=== PATIENT | female | born 1955 | race Caucasian/White ===

== ENCOUNTER 2018-02-07 15:30 | Inpatient (IN) | payer OTHER ==
[~2018-02-07] VITALS: Ht 157.5 cm; Wt 100.3 kg
[2018-02-07 15:37] VITALS: BP 114/66
[2018-02-07] MEDS ORDERED: CELEXA20 MG PO (15:41)
[2018-02-07] MEDS ORDERED: GLUCOTROL5 MG PO (15:41)
[2018-02-07] MEDS ORDERED: SYNTHROID150 MCG PO (15:41)
[2018-02-07] MEDS ORDERED: FARXIGA10 MG PO (15:41)
[2018-02-07] MEDS ORDERED: HYDROCHLOROTHIA25 M2 PO (15:42)
[2018-02-07] MEDS ORDERED: LIPITOR 20 MG T20 M1 PO (15:42)
[2018-02-07] MEDS ORDERED: GLUCOPHAGE XR500 MG PO (15:42)
[2018-02-07] MEDS ORDERED: LISINOPRIL30 MG PO (15:42)
[2018-02-07] MEDS ORDERED: ALLEGRA ALLERGY60 MG PO (15:43)
[2018-02-07] MEDS ORDERED: ATENOLOL 100MG100 M2 PO (15:43)
[2018-02-07] MEDS ORDERED: CELEBREX 200 M200 M1 PO (15:43)
[2018-02-07 16:12] LABS: ABSOLUTE BASOPHILS 0.1 thou/uL (0.0-0.2); ABSOLUTE EOSINOPHILS 0.2 thou/uL (0.0-0.7); ABSOLUTE LYMPHOCYTES 1.5 thou/uL (0.8-5.3); ABSOLUTE MONOCYTES 0.8 thou/uL (0.0-1.2); ABSOLUTE NEUTROPHILS 5.2 thou/uL (1.6-8.1); BASOPHILS 0.8 %; EOSINOPHILS 3.1 %; HEMOGLOBIN 9.9 gm/dL (12.0-15.0); LYMPHOCYTES 19.4 %; MCH 30.8 pg (26.0-34.0); MCHC 32.9 g/dL (28.0-37.0); MCV 93.7 fL (80.0-100.0); MONOCYTES 10.2 %; MPV 8.2 fl. (7.2-11.1); NUCLEATED RBCS 0 /100WBC; PLATELET COUNT* 352 thou/uL (150-400); POLYS 66.5 %; RDW-CV 14.8 % (10.5-14.5); WBC 7.9 thou/uL (4.0-11.0)
[2018-02-07 16:21] LABS: APTT 30.9 Seconds (25.0-31.3); PROTIME 9.5 Seconds (9.20-11.50)
[2018-02-07 16:23] LABS: CREATININE 1.3 mg/dL (0.6-1.3); POTASSIUM 4.5 mmol/L (3.5-5.1)
[2018-02-07 16:28] LABS: ALBUMIN 3.1 g/dL (3.4-5.0); TOTAL BILIRUBIN 0.6 mg/dL (<0.1-1.0); TOTAL PROTEIN 8.1 g/dL (6.4-8.2)
[2018-02-07 20:00] VITALS: BP 125/56
[2018-02-07 20:11] VITALS: BP 122/68
--- NOTE | 2018-02-08 05:33 | NUR ---
PT ADMITTED TO UNIT. PT ORIENTED TO ROOM, CALL LIGHT SHOWN, FALL AGREEMENT WENT OVER. PT STATED UNDERSTANDING. ADMISSION COMPLETED. ASSESSMENT DOCUMENTED. PICTURE TAKEN. NO REPORTS OF PAIN. IV PATENT, FLUIDS INFUSING. WILL CONTINUE WITH PLAN OF CARE.
[2018-02-08 08:20] VITALS: BP 121/69
[2018-02-08] MEDS ORDERED: METFORMIN HCL500 MG PO (11:35)
[2018-02-08 16:00] VITALS: BP 128/60
--- NOTE | 2018-02-08 17:31 | NUR ---
WOUND CARE NOTE: CONSULT RECEIVED FOR CELLULITIS LEFT FOOT. PATIENT WAS SEEN WITH HOME HEALTH SPEECH THERAPIST. 3 ULCERATIONS NOTED TO LEFT HALLUX. LATERAL AND MEDIAL ASPECTS OF THE TOE WITH 0.5X0.5 ULCERATIONS. SIGNIFICANT AMOUNT OF DEPTH WITH THE LATERAL ASPECT PROBING TO BONE. PLANS FOR LEFT HALLUX AMPUTATION TOMORROW WITH DR. SEGAL. APPLIED DRY GAUZE AT THIS TIME FOR DRAINAGE ABSORBTION.
--- NOTE | 2018-02-08 18:42 | NUR ---
PATIENT HAS BEEN A/O X 4 THIS SHIFT. HAS DENIED PAIN OR DISCOMFORT TO LEFT FOOT. LEFT FOOT REMAINS RED AND SWOLLEN. SEEN BY PODIATRY THIS SHIFT, PLAN FOR SURGERY IN THE AM. TOLERATING DIET. IV ANTIBIOTICS INFUSING ORDERED, IV FLUIDS CONTINUE TO INFUSE. UP AD JEREMÍAS IN ROOM. LEFT LEG ELEVATED ON PILLOWS WHILE IN BED. PATIENT AND FAMILY UPDATED ON PLAN OF CARE. HOURLY ROUNDING COMPLETED. CALL LIGHT WITHIN REACH. WILL CONTINUE WITH PLAN OF CARE.
[2018-02-08 20:45] VITALS: BP 116/78
--- NOTE | 2018-02-09 05:58 | NUR ---
PT SLEPT MOST OF SHIFT. ASSESSMENT DOCUMENTED. MEDS GIVEN PER E-AUG. IV PATENT, FLUIDS INFUSED. NO REPORTS OF PAIN. PT REMAINED NPO AFTER MIDNIGHT. AM MEDS WILL BE GIVEN WITH A SIP OF WATER. WILL CONTINUE WITH PLAN OF CARE.
[2018-02-09 08:35] VITALS: BP 144/58
[2018-02-09 10:43] VITALS: BP 144/68
--- NOTE | 2018-02-09 12:06 | EKG ---
[place] [address] ELECTROCARDIOGRAM REPORT Name: JOANIE HIRSCH Room: [address] ADM IN ..#: [id number] Admission: 02/07/18 Attend Phys: Keri Hodge MD Discharge: Date of : 53 Report #: [id number] THIS REPORT FOR: //name// [facility] Test Date: 2018-02-09 Test Time: 09:14:02 Pat Name: JOANIE HIRSCH Department: Room: [address] Gender: F [employer]als[employer]: : 1955 Requested By: Evelio Page Order Number: [id number] Reading MD: Tyron Quesada Measurements Intervals [place] Rate: 67 P: 43 HI: 130 QRS: 3 QRSD: 103 T: 36 QT: 433 QTc: 457 Interpretive Statements Sinus arrhythmia Borderline T abnormalities, anterior leads No previous ECG available for comparison Electronically Signed On 02-09-2018 12:06:26 CDT by Tyron Quesada [email or web address] <ELECTRONICALLY SIGNED> By: Tyron Quesada MD, [facility] 02/09/18 1206 0914 3 Tyron Quesada MD, FACC /EPI
--- NOTE | 2018-02-09 12:58 | CON ---
[address] [address] CONSULTATION Name: JOANIE HIRSCH Room: [address] IN .R.#: [id number] Admission: 02/07/18 Attend Phys: Keri Hodge MD Discharge: Date of : 53 Report #: [id number] THIS REPORT FOR: //name// CC: Arnulfo Hodge DATE OF SERVICE: 02/08/2018 REASON FOR CONSULTATION: Soft tissue infection, left foot, great toe. CHIEF COMPLAINT AND HISTORY OF PRESENT ILLNESS: The patient is 62-year-old female that was admitted today with ulceration to left great toe with deep tissue infection and cellulitis extending to the lower leg. She has a longstanding history of type 2 diabetes mellitus with peripheral neuropathy. She noticed a wound forming to the dorsal aspect of the toenail bed roughly 4 weeks ago and treated with topical antibiotic and a Band-Aid. She then noticed a wound erupting to the medial aspect earlier this week with increased redness, swelling, and low-grade fevers. She denies any get trauma. She denies outpatient treatment for the wound. She is currently on parenteral vancomycin with good tolerance. Foot radiographs significant for osteolysis to left hallux interphalangeal joint consistent with septic arthritis. Blood cultures are pending x 2. LABORATORY DATA: WBC 7.9, RBC 3.20, hemoglobin 9.9, hematocrit 30.0, platelets 352. BUN 25, creatinine 1.3, glucose 120. PHYSICAL EXAMINATION: Advanced inflammation with cellulitis to the left great toe joint, dorsal foot and anterior ankle. There are 2 penetrating wounds to left great toe, 1 medial and 1 lateral. Both wounds under the hallux interphalangeal joint, and I cannot palpate bone with a sterile Q-tip. I am able to express some purulence from both wounds. I performed an aerobic and anaerobic swab culture. She has strong pedal pulses bilaterally. Negative Homans' or Suarez sign. No popliteal adenopathy to the popliteal fossa. IMPRESSION: Septic arthritis with osteomyelitis, left great toe interphalangeal joint, type 2 diabetes mellitus with peripheral neuropathy. PLAN: We will plan surgical amputation tomorrow. The patient to be nonweightbearing, rest, elevate the extremity with parenteral antibiotics. We will keep her n.p.o. past midnight. <ELECTRONICALLY SIGNED> By: Won Montalvo DPM 02/09/18 1258 [id number] [id number] Montalvo DPM /nt
--- NOTE | 2018-02-09 13:03 | NUR ---
Nutrition: Pt admitted for Lt toe amputation, cellulitis LLE. H/o DM II, Rt foot ulcers, HTN. NPO currently for surgery. Wt: 221#. BG 164, albumin 3.1. Pt is seen for high BMI, 40.4. No nutrition interventions today. GOALS: diet to advance to CHO controlled when able, tight BG control for wound healing. Please consult RD if nutrition education warranted after procedure. RECOMMEND MVI.
--- NOTE | 2018-02-09 15:54 | NUR ---
SW attempted to meet with pt to complete initial assessment and pt was off of the unit. Pt lives at home with . SW to continue to follow to assist with safe dc planning.
[2018-02-09 16:45] VITALS: BP 147/70
--- NOTE | 2018-02-09 17:33 | NUR ---
PATIENT HAS BEEN A/O X 4 THIS SHIFT. PATIENT HAS DENIED PAIN THI SHIFT. IV FLUIDS AND ANTIBIOTICS INFUSED ORDERED. PATIENT HAD LEFT GREAT TOE AMPUTATED THIS SHIFT, RETURNED FROM SURGERY AT 1645. VITAL STABLE ON ROOM AIR. PATIENT WITH BULKY DRESSING INTACT TO LEFT FOOT. PATIENT INSTRUCTED ON WEIGHT BEARING STATUS TO LEFT FOOT AND VERBALIZED UNDERSTANDING. ID CONSULTED FOR ANTIBIOTICS. TO HAVE ULTRASOUND OF ABDOMEN AND BILATERAL LOWER LEGS ON WEDNESDAY. FAMILY AT BEDSIDE. HOURLY ROUNDING COMPLETED. CALL LIGHT WITHIN REACH. WILL CONTINUE WITH PLAN OF CARE.
[2018-02-09 23:34] VITALS: BP 131/68
[2018-02-10 03:11] VITALS: BP 125/68
--- NOTE | 2018-02-10 05:11 | NUR ---
PT SLEPT AT INTERVALS DURING THE NIGHT, PLEASANT, IV FLUIDS INFUSED, UP SBA WITH WALKER, NWB LEFT FOOT TO THE BATHROOM, CALL LIGHT IN REACH, PRN TYLENOL LAST NIGHT FOR A HEADACHE, LEFT FOOT ON PILLOW, WILL CONTINUE TO MONITOR
[2018-02-10 08:20] VITALS: BP 135/57
--- NOTE | 2018-02-10 11:44 | CON ---
[address] [address] CONSULTATION Name: JOANIE HIRSCH Room: [address] IN M.R.#: [id number] Admission: 02/07/18 Attend Phys: Keri Hodge MD Discharge: Date of : 53 Report #: [id number] THIS REPORT FOR: //name// CC: Arnulfo Hodge DATE OF SERVICE: 02/09/2018 INFECTIOUS DISEASE CONSULTATION ATTENDING PHYSICIAN: Dr. Hodge. REASON FOR EVALUATION: Left great toe chronic ulceration complicated by what appears to be a deep infection, likely chronic osteomyelitis. HISTORY OF PRESENT ILLNESS: Chart reviewed, patient examined. This is a 62-year-old woman, with known diabetes mellitus, non-insulin requiring, who has fairly profound peripheral neuropathy, who apparently sustained superficial injury involving her left great toe roughly 4 weeks ago that has been nonhealing. She has been evaluated more recently, noted increasing inflammation at the site with extension onto the foot. It is not clear if she has had systemic illness, particularly fevers. Denies any pulmonary or gastrointestinal related complaints. She underwent plain film of the foot that showed comminuted fracture involving the proximal and distal portions of the great toe. She is scheduled to undergo operative evaluation, probable toe amputation this afternoon. She is empirically started on therapy with vancomycin. There is a pending culture of the site as well as blood cultures, the latter of which has been sterile thus far. She is not encephalopathic. ALLERGIES: PENICILLIN. SHE DESCRIBES THIS A CHILD, DEVELOPED SOME SWELLING, AND SULFA, RASH AND SWELLING WELL. CURRENT MEDICATIONS: Include acetaminophen, citalopram, atorvastatin, metformin, atenolol, loratadine, lisinopril, celecoxib, hydrochlorothiazide, levothyroxine, glipizide, vancomycin. PAST MEDICAL HISTORY: As described above, diabetes mellitus type 2, non-insulin requiring, history of hypertension, hypothyroidism, previous cataract surgery. SOCIAL HISTORY: Nonsmoker, no ethanol. FAMILY HISTORY: Noncontributory. REVIEW OF SYSTEMS: As above. PHYSICAL EXAMINATION: [place] [address] CONSULTATION Name: JOANIE HIRSCH Room: [address]#: [id number] Admission: 02/07/18 Attend Phys: Keri Hodge MD Discharge: Date of : 53 Report #: [id number] GENERAL: She appears somewhat chronically ill, mildly undernourished. She is in mild distress. She is in the preoperative setting. VITAL SIGNS: Temperature 98.7, pulse 65, respirations 16, blood pressure 144/60. SKIN: Warm, dry, no rashes. HEENT: Unremarkable. NECK: Supple. LUNGS: Diminished breath sounds. HEART: Regular, soft systolic murmur. ABDOMEN: Soft, nontender, nondistended. EXTREMITIES: The left foot was examined. The great toe has moderate to marked inflammatory changes superficially. She has a wound that does not appear to have communication with the bone. She does have evidence of neuropathy as well. There is no particular odor, no purulence. GENITOURINARY: Deferred. RECTAL: Deferred. LABORATORY DATA: Blood cultures sterile thus far. X-ray of the foot has described extensive comminuted fracture involving the proximal and distal portions of great toe, underlying diffuse bony remodeling, consideration of osteomyelitis. Lactic acid 1.3. Electrolytes: Sodium 137, potassium 4.5, chloride 102, bicarbonate is 26, anion gap of 9, BUN and creatinine 25 and 1.3. AST of 82, ALT of 98. CBC: White count of 7.9, H and H 9.9 and 30.0, platelets of 352. ASSESSMENT: Chronic ulceration involving the left great toe in the setting of diabetes mellitus with profound peripheral neuropathy. We will continue empiric antimicrobial therapy at this point, await any results, Dr. Montalvo's impression as well. The likelihood he will need an extended period of parenteral antimicrobial therapy discussed with the patient, placing a PICC line. We will make those arrangements as it becomes clear she is going to be discharged. Secondly, has elevated liver function tests. We will check hepatitis C antibody and we are going to do an abdominal ultrasound. <ELECTRONICALLY SIGNED> By: Paco Mayen MD 02/10/18 1144 1605 [id number] Mayen MD /nt
--- NOTE | 2018-02-10 12:27 | NUR ---
WOUND CARE NOTE: LEFT FOOT DRESSING CHANGE PATIENT IS POD #1 FROM A LEFT HALLUX AMPUTATION. DRESSING WAS REMOVED. SMALL TO MODERATE AMOUNT OF DRAINAGE ON PREVIOUS DRESSING, DID NOT STRIKE THROUGH. DRAINAGE WAS SEROSANGUINEOUS IN NATURE. INCISION LINE IS WELL APPROXIMATED WITH 13 SUTURES. AREA IS STILL HOT TO TOUCH, RED, EDEMATOUS. DRAINING SANGUINEOUS DRAINAGE. MACERATION AT INCISION LINE. STRONG PEDAL PULSES. CLEANSED WITH WOUND CLEANSER, PATTED DRY. PACKED AQUACEL AG INTO AREA WHERE PREVIOUS PACKING WAS. COVERED INCISION LINE WITH AQUACEL AG AND COVERED WITH ABD. SECURED WITH KERLIX AND NYASIA. PATIENT TOLERATED DRESSING CHANGE WELL. EDUCATED PATIENT ON KEEPING OFF FOOT TO PROMOTE HEALING, COMMUNICATED UNDERSTANDING. EDUCATED PATIENT ON KEEPING BLOOD SUGARS TIGHTLY CONTROLLED AND IMPORTANCE FOR NUTRITION WITH HEALING, COMMUNICATED UNDERSTANDING. RECOMMEND TIGHT BLOOD GLUCOSE CONTROL ENCOURAGE GOOD NUTRTION/HYDRATION KEEP OFF FOOT
[2018-02-10 15:45] VITALS: BP 148/73
--- NOTE | 2018-02-10 17:49 | NUR ---
PATIENT REMAINED ALERT AND ORIENTED X'S 4. VITAL SIGNS AND SPO2 STABLE. IV CLEAN, FLUID INFUSING. PATIENT HAD A HEADACHE TODAY BUT DENIES PAIN OTHERWISE. VOIDED AND PASSED BM WITHOUT ISSUE. STEADY GAIT, STANDBY ASSIST. TOLERATED DIET, NO NAUSEA AND VOMITING. COMPLETED HOURLY ROUNDING. CALL LIGHT WITHIN REACH. WILL CONTINUE TO MONITOR.
[2018-02-10 20:15] VITALS: BP 108/72
[2018-02-10 21:07] LABS: HEPATITIS B SURFACE AG Negative (Negative)
--- NOTE | 2018-02-11 04:40 | NUR ---
PT SLEPT AT INTERVALS DURING THE NIGHT, UP SBA WITH WALKER TO THE BATHROOM, NWB LEFT FOOT, BULKY DRSG C/D/I, PT C/O HEARTBURN, PROTONIX ORDERED AND GIVEN, CALL LIGHT IN REACH, WILL CONTINUE TO MONITOR
[2018-02-11 09:46] VITALS: BP 141/75
[2018-02-11 10:40] VITALS: BP 141/75
--- NOTE | 2018-02-11 11:29 | NUR ---
RIGHT BASILIC VESSEL ACCESSED FOR SINGLE LUMEN PICC. LINE PRE-TRIMMED TO 40 CM AND ADVANCED TO THE ZERO HUBER WITH NO RESISTANCE MET. UPPER ARM CIRCIMFERENCE ABOVE INSERTION STIE = 13 ". POSITIVE 3CG AND SHERLOCK CONFIRMATION OF TIP TERMINATION AT THE CAVOATRIAL JUNCTION. SYLET REMOVED, LINE FLUSHED WITH EASE AND GOOD BRISK BLOOD RETURN NOTED. PATIENT VERBALIZED UNERSTANDING OF THE RISKS AND BENEFITS PRIOR TO INSERTION. REPORT GIVEN TO FERNANDA MAYES.
[2018-02-11] MEDS ORDERED: VANCO 1 GR1 GM/250 M IV (12:25)
[2018-02-11] MEDS ORDERED: MAXIPIME 1 GM/D51 G1 IV (12:26)
[2018-02-11 12:27] VITALS: BP 141/75
[2018-02-11] MEDS ORDERED: TYLENOL325 MG PO (12:27)
[2018-02-11 16:13] VITALS: BP 141/75
--- NOTE | 2018-02-11 16:16 | NUR ---
JESUS met with pt to discuss safe dc planning and order for IV antibiotics. SW faxed referral and order to [facility] stated antibiotics would cost $49.20 per day unless pt out of pocket is met from hospital stay, then pt would be covered at 100%. [facility] checked and informed SW that they are not in network with pt insurance. SW discussed with pt and pt and wanted SW to check on possible OP option. SW called and they approved to be able to administer 2 times a day and that there would be $16/visit or $32/day for OP. SW discussed with pt and pt decided to choose home infusion option with possibility that pt will not have a cost after pt out of pocket expense is met. Otherwise, pt will be allowed a payment plan if needed. JESUS faxed final order and order for RN through [facility] to [facility]. JESUS called [facility] and confirmed and they accepted orders and referral and will send a nurse to pt home at 10 am tomorrow morning.
[2018-02-11 16:32] VITALS: BP 141/75
--- NOTE | 2018-02-11 17:30 | NUR ---
PATIENT IS ALERT AND ORIENTED TODAY VERY PLEASANT. UP WITH STAND BY AND WALKER. SURGICAL SHOE GIVEN TO PATIENT THIS AFTERNOON. NO COMPLAINTS OF PAIN TODAY. VITAL SIGNS STABLE ON ROOM AIR. PICC LINE INSERTED TODAY. INFUSION WITH HOME HEALTH SET UP WITH CASE MANAGEMENT. PATIENT IS BEING DISCHARGED TO HOME WITH HOME HEALTH. PATIENT LEFT VIA WHEELCHAIR WITH TO GO HOME.
[2018-02-11 17:33] VITALS: BP 141/75
--- NOTE | 2018-02-23 13:04 | CON ---
[address] [address] CONSULTATION Name: JOANIE HIRSCH Room: [address] IN M.R.#: [id number] Admission: 02/07/18 Attend Phys: Keri Hodge MD Discharge: 02/11/18 Date of : 53 Report #: [id number] THIS REPORT FOR: //name// CC: Arnulfo Hodge DATE OF SERVICE: 02/11/2018 CHIEF COMPLAINT: Postoperative day #2 for amputation of left great toe with primary closure for osteomyelitis. Surgical pathology is pending. Preoperative swab culture grew Pseudomonas, surgical bone and tissue cultures are pending. Arterial Doppler ultrasound was negative for stenosis or flow limitation. She denies pain to the foot, she has been afebrile with good appetite. She has remained nonweightbearing since surgery. There are no new labs for review. PHYSICAL EXAMINATION: The incision is well coapted with minimal inflammation, which is substantially decreased since prior surgery. The inflammation and cellulitis to the distal foot and ankle are low grade. There is no fluctuance or crepitation to the incision. No active bleeding. The foot is warm with palpable dorsalis pedis and posterior tibial pulses. No signs of acute vascular embarrassment. IMPRESSION: Status post left hallux amputation for osteomyelitis. Type 2 diabetes mellitus, peripheral neuropathy. PLAN: The incision was cleansed and a wick of Aquacel Ag was tucked between two sutures as a drain. The incision was covered with Aquacel Ag, ABD, Kerlix, and Raul bandage. I wrote order for physical therapy for partial weightbearing in a surgical shoe. Antibiotics per infectious disease. Awaiting culture results. <ELECTRONICALLY SIGNED> By: Won Montalvo DPM 02/23/18 1304 0725 [id number] Montalvo DPM /nt
--- NOTE | 2018-02-23 13:04 | OP ---
[address] [address] OPERATIVE REPORT Name: JOANIE HIRSCH Room: [address]R.#: [id number] Admission: 02/07/18 Attend Phys: Keri Hodge MD Discharge: 02/11/18 Date of : 53 Report #: [id number] THIS REPORT FOR: //name// CC: Arnulfo Hodge DATE OF SERVICE: 02/09/2018 SURGEON: Won Montalvo DPM PREOPERATIVE DIAGNOSIS: Osteomyelitis, left great toe. POSTOPERATIVE DIAGNOSIS: Osteomyelitis, left great toe. PROCEDURES: 1. Amputation, left great toe with primary closure. 2. Incision and drainage, left foot. 3. Pedicled skin flap, left foot. ANESTHESIA: General LMA. INJECTABLES: 30 mL of a 1:1 mixture of 0.5% Marcaine plain and 1% lidocaine plain. ESTIMATED BLOOD LOSS: Minimal. HEMOSTASIS: Left ankle pneumatic tourniquet at 250 mmHg. SUTURES: 3-0 nylon. ESTIMATED BLOOD LOSS: Minimal. COMPLICATIONS: None. SPECIMENS: Left great toe. CULTURES: 1. Bone, left hallux, distal phalanx for aerobic and anaerobic. 2. Soft tissue, left great toe, aerobic and anaerobic. DESCRIPTION OF PROCEDURE: The patient was brought to the operating room and placed on the table supine with induction of general LMA anesthesia. A well-padded left ankle pneumatic tourniquet was placed. A local anesthetic block was given to the foot with the above mixture. The extremity was prepped and draped aseptically, and the foot was exsanguinated with inflation of the tourniquet. A #10 surgical blade was used to create [place] [address] OPERATIVE REPORT Name: JOANIE HIRSCH Room: [address]#: [id number] Admission: 02/07/18 Attend Phys: Keri Hodge MD Discharge: 02/11/18 Date of : 53 Report #: [id number] around the left great toe joint, which was then disarticulated at the first MTP joint. Electrocautery was used for hemostasis. The extensor and flexor tendons were retracted proximally and removed. The skin margins were trimmed to remove dog ears to allow appropriate closure. There were no signs of infection at the first MTP joint or in the distal first metatarsal head, had no signs of osteolysis or osteomyelitis. The wound was flushed with sterile saline with bacitracin irrigant and dried. The plantar medial flap was mobilized dorsolaterally and sutured with 3-0 nylon in simple interrupted fashion. A quarter inch Nu Gauze drain was introduced between 2 sutures to facilitate drainage. The entire surgical wound was reapproximated with sutures. The foot was cleansed and dried and a sterile compressive bandage with Aquacel Ag, fluffs, ABDs, Kerlix and Raul bandage were applied. The tourniquet was deflated with normal vascular return to the extremity. The patient left the OR alert and oriented with no pain or complications noted. <ELECTRONICALLY SIGNED> By: Won Montalvo DPM 02/23/18 1304 1637 1709Won Montalvo DPM /nt
--- NOTE | 2018-03-22 10:08 | PATH ---
[address] [address] PATHOLOGY RPT PROCEDURE Name: JOANIE SOTOMAYOR Room: [address] IN M.R.#: [id number] Admission: 02/07/18 Date of : 53 Discharge: 02/11/18 Report #: [id number] Path Case #: [id number] [facility] Accession Number: [id number] . 01 Material submitted: . LEFT GREAT TOE . 01 Clinical history: . Osteomyelitis left great toe . 02 Diagnosis: Left great toe: - Benign great toe with missing nail, nonspecific ulceration, acute inflammation of soft tissues and extensive osteomyelitis of phalangeal bones. - Separate segment of bone with extensive osteomyelitis extending from jagged end to immediately beneath articular surface at opposite end, without traversing cartilage. (See comment) . (MARANDA:flavio; 02/15/2018) QMS/02/15/2018 . 02 Comment: Preliminary findings discussed with Dr. Mayen at approximately 15:45 on 02/11/2018. . 02 Electronically signed: . Kenneth Dove MD, Pathologist NPI- [id number] . 01 Gross description: . The specimen is received in formalin, labeled "Joanie Sotomayor, left great toe". Received is an amputated digit measuring 3.8 x 3.7 x 3.3 cm in greatest dimensions. The bone margin is jagged in appearance. The bone and soft tissue margins are inked black. The nail is absent, however, there is a poorly circumscribed, irregular in contour and light mckeon to diop-brown lesion present measuring 1.5 x 1.0 cm, which is 0.8 cm from the closest skin margin. Adjacent to this lesion, there is a secondary lesion on the lateral aspect of the toe which is well-circumscribed, flat and light mckeon measuring 0.6 x 0.6 cm, which grossly approaches the soft tissue margin. . Also received within the specimen container is an additional segment of bone displaying one smooth, convex margin, consistent with disarticulation, and one jagged margin, measuring 2.7 x 1.7 x 1.3 cm in greatest dimensions. The disarticulated margin is inked blue. The specimen is submitted representatively as follows: . [place] [id number] PATHOLOGY RPT PROCEDURE Name: JOANIE SOTOMAYOR Room: [address] [place] .R.#: [id number] Admission: 02/07/18 Date of : 53 Discharge: 02/11/18 Report #: [id number] Path Case #: [id number] A1-A2 full-thickness longitudinal cross-section of toe, submitted from proximal to distal aspects, following decalcification A3 sales representative [employer] section of secondary lesion on medial aspect of specimen tissue relationship with soft tissue margin A4 sales representative [employer] section of separately submitted segment of bone, following decalcification. (CAA; 02/10/2018) QAC/QAC . 02 Pathologist provided ICD-10: M86.8X7, L97.529 . 02 CPT . 789478, [id number] Specimen Comment: A courtesy copy of this report has been sent to Specimen Comment: [phone], . Performed at: 01 [facility] [address], [place], [place] [id number] MD Aris Kimble MD Phone: [phone] Performed at: 02 [facility] [address], [place], [place] [id number] MD Kenneth Dove MD Phone: [phone]
== END 2018-02-11 17:36 | disposition home health service (06) | DRG 617 ==
LOC: M.ERS 15:30 → M.TBA-ER 16:32 → M.3W 16:32
PROVIDERS: Nurse Practitioner Family; Specialist; ADMIT Internal Medicine
PROC: 0Y6Q0Z0 Detachment at Left 1st Toe, Complete, Open Approach (ICD-10-PCS; principal; 2018-02-09)
PROC: 0J9R0ZZ Drainage of Left Foot Subcutaneous Tissue and Fascia, Open Approach (ICD-10-PCS; principal; 2018-02-09)
DX: E11.69 Type 2 diabetes mellitus with other specified complication (principal); M00.9 Pyogenic arthritis, unspecified; M86.8X7 Other osteomyelitis, ankle and foot; I10 Essential (primary) hypertension; E11.42 Type 2 diabetes mellitus with diabetic polyneuropathy; L03.032 Cellulitis of left toe; R16.2 Hepatomegaly with splenomegaly, not elsewhere classified; L97.529 Non-pressure chronic ulcer of other part of left foot with unspecified severity; B96.5 Pseudomonas (aeruginosa) (mallei) (pseudomallei) as the cause of diseases classified elsewhere; E78.5 Hyperlipidemia, unspecified; D64.9 Anemia, unspecified; E11.621 Type 2 diabetes mellitus with foot ulcer; E03.9 Hypothyroidism, unspecified; Z79.84 Long term (current) use of oral hypoglycemic drugs; Z79.899 Other long term (current) drug therapy; Z88.0 Allergy status to penicillin; Z88.2 Allergy status to sulfonamides

== ENCOUNTER 2018-02-12 07:13 | Emergency (ER) | payer OTHER ==
[~2018-02-12] VITALS: Ht 157.5 cm; Wt 102.3 kg
[~2018-02-12 07:13] MED LIST: ALLEGRA ALLERGY60 MG PO; ATENOLOL 100MG100 M2 PO; CELEBREX 200 M200 M1 PO; CELEXA20 MG PO; FARXIGA10 MG PO; GLUCOPHAGE XR500 MG PO; GLUCOTROL5 MG PO; HYDROCHLOROTHIA25 M2 PO; LIPITOR 20 MG T20 M1 PO; LISINOPRIL30 MG PO; MAXIPIME 1 GM/D51 G1 IV; METFORMIN HCL500 MG PO; SYNTHROID150 MCG PO; TYLENOL325 MG PO; VANCO 1 GR1 GM/250 M IV
[2018-02-12 07:18] VITALS: BP 148/80
== END 2018-02-12 07:37 | disposition home or self-care (01) ==
LOC: M.ERS 07:13
DX: Z71.1 Person with feared health complaint in whom no diagnosis is made (principal); I10 Essential (primary) hypertension; E03.9 Hypothyroidism, unspecified; E11.9 Type 2 diabetes mellitus without complications; Z88.0 Allergy status to penicillin; Z88.2 Allergy status to sulfonamides

== ENCOUNTER → 2018-02-23 | Outpatient (CLI) | payer OTHER ==
--- NOTE | 2018-02-24 15:01 | CON ---
[address] [address] CONSULTATION Name: JOYCELYNJOANIE Room: [facility]#: [id number] Admission: 02/23/18 Attend Phys: Won Montalvo DPM Discharge: Date of : 53 Report #: [id number] THIS REPORT FOR: //name// CC: Won Serrano DATE OF SERVICE: 02/23/2018 INFECTIOUS DISEASE CONSULTATION ATTENDING PHYSICIAN: Won Montalvo DPM The [facility] is [facility] with left great toe chronic osteomyelitis. The patient has completed roughly 2 weeks of therapy. Generally, she has been doing well, denies any localizing signs or symptoms. It is notable that she has peripheral neuropathy, she has not been systemically ill either. On examination, the wound that is sutured does appear to be less inflamed. Clearly, there is no evidence of purulent drainage or odor. I reviewed the labs. Discussed with Dr. Montalvo to a culture with Pseudomonas, which I cannot locate at this point. She has been on cefepime and the operative cultures do suggest a growth of Staph aureus, although as opposed to the superficial cultures with MRSA, this was susceptible as well as group B strep which has a degree of response to cefepime. I did review the path report, articular surface was a barrier, had extension of the infection up to that point, although it did not cross it. IMPRESSION AND PLAN: Chronic osteomyelitis. We will make adjustments, switch to vancomycin. There are no gram-negatives associated with the operative cultures. We will plan to extend that at least to an additional couple of weeks, perhaps up to 4. We will get weekly labs. We will see her back in 1 week. <ELECTRONICALLY SIGNED> By: Paco Mayen MD 02/24/18 1501 0906 [id number] Mayen MD /nt
== END ==
LOC: M.WC 12:38
DX: T81.89XA Other complications of procedures, not elsewhere classified, initial encounter (principal); E11.40 Type 2 diabetes mellitus with diabetic neuropathy, unspecified; I10 Essential (primary) hypertension; E03.9 Hypothyroidism, unspecified; E78.5 Hyperlipidemia, unspecified; F41.9 Anxiety disorder, unspecified; Y92.89 Other specified places as the place of occurrence of the external cause; Y83.8 Other surgical procedures as the cause of abnormal reaction of the patient, or of later complication, without mention of misadventure at the time of the procedure

== ENCOUNTER → 2018-03-02 | Outpatient (CLI) | payer OTHER ==
--- NOTE | 2018-03-04 07:56 | CON ---
[address] [address] CONSULTATION Name: JOANIE HIRSCH [id number] Admission: 03/02/18 Attend Phys: Won Montalvo DPM Discharge: Date of : 53 Report #: [id number] THIS REPORT FOR: //name// CC: Won Serrano DATE OF SERVICE: 03/02/2018 ATTENDING PHYSICIAN: Dr. Won Cat. REASON FOR EVALUATION: Here for left great toe amputation due to chronic osteomyelitis. HISTORY OF PRESENT ILLNESS: Chart reviewed, patient examined. The patient returns in followup having completed roughly 3 weeks of treatment. Postop, she continues to deny any significant localizing signs or symptoms. She has not been systemically ill. On examination, she does have a bit of a dehiscence in the distal aspect of the wound undergoing debridement by Dr. Montalvo. There is a mild degree of inflammation noted, although it is improved from previous. Review of the lab results, which showed evidence of normalized sed rate. Chronic osteomyelitis. At this point, would extend the antibiotics at least additional week. Pathology report noted. There was no breach of the articular surface in terms of the infection, but had switched up the antibiotics due to update in culture results last week. We will plan to see her back in 1 week. <ELECTRONICALLY SIGNED> By: Paco Mayen MD 03/04/18 0756 1019 [id number] Mayen MD /dane
== END ==
LOC: M.WC 04:52
DX: T81.89XD Other complications of procedures, not elsewhere classified, subsequent encounter (principal); E11.40 Type 2 diabetes mellitus with diabetic neuropathy, unspecified; I10 Essential (primary) hypertension; E03.9 Hypothyroidism, unspecified; E78.5 Hyperlipidemia, unspecified; Y83.8 Other surgical procedures as the cause of abnormal reaction of the patient, or of later complication, without mention of misadventure at the time of the procedure

== ENCOUNTER → 2018-03-09 | Outpatient (CLI) | payer OTHER ==
--- NOTE | 2018-03-10 11:07 | CON ---
[address] [address] CONSULTATION Name: JOANIE HIRSCH Room: [facility].#: [id number] Admission: 03/09/18 Attend Phys: Won Montalvo DPM Discharge: Date of : 53 Report #: [id number] THIS REPORT FOR: //name// CC: Won Serrano DATE OF SERVICE: 03/09/2018 ATTENDING PHYSICIAN: Dr. Won Montalvo. HISTORY OF PRESENT ILLNESS: Here for left great toe amputation as a result of chronic osteomyelitis. The patient returns in followup, ongoing wound care for right great toe amputation site that is actually well approximated. Sutures have been removed, has been utilizing Steri-Strips until last week, there is very little surface inflammation noted. Denies any systemic illness or localizing signs or symptoms. She has completed roughly 4 weeks of therapy with parenteral antibiotics. Review of previous lab was fairly unrevealing. Chronic osteomyelitis. At this point, would discontinue the antibiotic. Would go ahead and remove the PICC line. Continue to offload the site. She is to notify wound care and contact me in event of any increasing concerns or problems. We will see her as needed. <ELECTRONICALLY SIGNED> By: Paco Mayen MD 03/10/18 1107 0636 [id number] Rica Mayen MD /nt
== END ==
LOC: M.WC 03:06
DX: T87.89 Other complications of amputation stump (principal); E11.69 Type 2 diabetes mellitus with other specified complication; M86.672 Other chronic osteomyelitis, left ankle and foot; E11.42 Type 2 diabetes mellitus with diabetic polyneuropathy; E03.9 Hypothyroidism, unspecified; E78.5 Hyperlipidemia, unspecified; I10 Essential (primary) hypertension; F41.9 Anxiety disorder, unspecified; Y83.5 Amputation of limb(s) as the cause of abnormal reaction of the patient, or of later complication, without mention of misadventure at the time of the procedure